=== PATIENT | female | born 2000 ===

== ENCOUNTER 2018-11-16 09:41 | Inpatient (IN) | payer MEDICAID ==
[2018-11-15 23:13] LABS: Hematocrit 42.3 % (30.3-42.9); Hemoglobin 13.8 gm/dl (10.1-14.3); Mean Corpuscular HGB Conc 33 % (30-34); Mean Corpuscular Volume 85 fl (79-97); Red Blood Count 4.98 M/mm3 (3.65-5.03); Red Cell Distribution Width 17.1 % (13.2-15.2)
[2018-11-15 23:19] LABS: Platelet Count 179 K/mm3 (140-440)
[2018-11-15] MEDS: LACTATED RINGERS 1,000 ML IV SCH (23:23)
[2018-11-16] MEDS: BUTORPHANOL 2 MG/1 ML INJ IV PRN ×3 (01:52→08:08)
[2018-11-16] MEDS: AMPICILLIN/NS 1 GM/50 ML 1 GM/50 ML BAG IV SCH ×2 (02:45→06:01)
[2018-11-16] MEDS: LACTATED RINGERS 1,000 ML IV SCH ×2 (08:09→16:15)
[~2018-11-16 09:41] MED LIST: AMPICILLIN/NS 2 GM/100 ML 2 GM/100 ML BAG IV ONE; LIDOCAINE (2%) 20 MG/1 ML VIAL 20 ML MDV INFILTRATI ONE; MINERAL OIL 30 ML ORAL LIQD PO PRN; ONDANSETRON 4 MG/2 ML INJ IV PRN; OXYTOCIN 20 UNIT/1000ML DRIP 20 UNITS/1,000 ML BAG IV SCH; OXYTOCIN DRIP 30 UNITS/500 ML BAG IV SCH; TERBUTALINE 1 MG/1 ML INJ IVP PRN; TERBUTALINE 1 MG/1 ML INJ SUB-Q PRN; ePHEDrine SULFATE 50 MG/1 ML INJ IV PRN
[2018-11-16] MEDS ORDERED: NALOXONE 2 MG/2 ML INJ IV PRN (10:21)
[2018-11-16] MEDS ORDERED: ePHEDrine SULFATE 50 MG/1 ML INJ IV PRN (10:21)
--- NOTE | 2018-11-16 10:22 | Anesthesia Consultation ---
Anesthesia Consult and Med Hx Date of service: 11/16/18 - Airway Anesthetic Teeth Evaluation: Good ROM Head & Neck: Adequate Mental/Hyoid Distance: Adequate Mallampati Class: Class II Intubation Access Assessment: Probably Good - Pulmonary Exam CTA: Yes - Cardiac Exam Cardiac Exam: RRR - Pre-Operative Health Status ASA Pre-Surgery Classification: ASA3 Proposed Anesthetic Plan: Epidural - Pulmonary Hx Asthma: No - Cardiovascular System Hx Hypertension: No - Central Nervous System Hx Seizures: No Hx Psychiatric Problems: No - Endocrine Hx Renal Disease: No Hx Hypothyroidism: No Hx Hyperthyroidism: No - Hematic Hx Anemia: No Hx Sickle Cell Disease: No - Other Systems Hx Alcohol Use: No Hx Obesity: Yes
[2018-11-16] MEDS ORDERED: fentaNYL-BUPIV 2 MCG/ML-0.125% 200 MCG/100 ML BAG EPIDURAL SCH (11:00)
[2018-11-16] MEDS ORDERED: WITCH HAZEL/ GLYCERIN PAD TP PRN (13:27)
[2018-11-16] MEDS ORDERED: LANOLIN/ZINC/DIMETHICONE (LANSINOH) 7 GM TP PRN (13:27)
[2018-11-16] MEDS ORDERED: MAGNESIUM HYDROXIDE (MOM) ORAL LIQD UDC PO PRN (13:27)
[2018-11-16] MEDS ORDERED: diphenhydrAMINE 25 MG CAP PO PRN (13:27)
[2018-11-16] MEDS ORDERED: HYDROcodone/ACETAMINOPHEN 5-325 MG TAB PO PRN (13:27)
[2018-11-16] MEDS ORDERED: ACETAMINOPHEN 325 MG TAB PO PRN (13:27)
[2018-11-16] MEDS ORDERED: ONDANSETRON 4 MG/2 ML INJ IV PRN (13:27)
[2018-11-16] MEDS ORDERED: PROMETHAZINE 25 MG TAB PO PRN (13:27)
--- NOTE | 2018-11-16 13:33 | Procedure Note ---
OB Delivery Note - Delivery Date of Delivery: 11/16/18 Surgeon: CHESTER JC (TERE) Estimated blood loss: 100cc - Vaginal Delivery presentation: vertex Delivery position: OA Intrapartum events: meconium (thick) Delivery induction: none Delivery monitor: external FHT, external uterine Route of delivery: (11:06) Delivery placenta: spontaneous (11:11) Delivery cord: 3 umbilical vessels Delivery laceration: 1st degree (small, left unrepaired) Anesthesia: epidural Delivery comments: viable female GAIL position at 11:06 with NICU and RT present for thick meconium stained fluid. Cord double clamped,cut, and infant placed in RW for assessment. Cord blood collected per hospital protocol. Spontaneous jarvis delivery of intact placenta, 3VC at 11:11. FF@U-2. small lochia. Small first degree perineal laceration left unrepaired. EBL 100cc. Infant and mother left in stable condition in L&D. - Infant A at 1 minute: 8 at 5 minutes: 9 Gender: Female (3094 grams, 6lbs 13oz, 19")
--- NOTE | 2018-11-16 13:40 | History and Physical Report ---
History of Present Illness Date of examination: 11/16/18 Date of admission: 11/16/18 11:23 Chief complaint: Intense labor pains History of present illness: 17yo , KOFFI 11/20/18 (LMP), 39 weeks 3 days presents in spontaneous labor. Pt initiated late care with [facility] at 16w1d gestation. Risk factors include morbid obesity and vitamin D deficiency. Past History Past Medical History: no pertinent history Past Surgical History: no surgical history [employer] V[employer]OR History: denies: abnormal PAP smear, chlamydia, gonorrhea, hepatitis B, hepatitis C, herpes, HIV, syphilis, trichomonas Family/Genetic History: hypertension Social history: no significant social history, single, lives with family, full code. denies: smoking, alcohol abuse, prescription drug abuse, IV drug use - Obstetrical History Expected Date of Delivery: 11/20/18 Actual Gestation: 39 Week(s) 3 Day(s) : 1 Para: 0 Hx # Term Pregnancies: 0 Number of Pregnancies: 0 Spontaneous Abortions: 0 Induced : 0 Number of Living Children: 0 Medications and Allergies Allergies Allergy/AdvReac Type Severity Reaction Status Date / Time No Known Allergies Allergy Unverified 11/15/18 21:41 Active Meds: Active Medications Acetaminophen (Tylenol) 650 mg PO Q4H PRN PRN Reason: Pain MILD(1-3)/Fever >100.5/PALOMARES Acetaminophen/Hydrocodone Bitart ([place] 5/325) 2 each PO Q6H PRN PRN Reason: Pain, Moderate (4-6) Bisacodyl (Dulcolax) 10 mg [place] BID PRN PRN Reason: Constipation Butorphanol Tartrate (Stadol) 2 mg IV Q2H PRN PRN Reason: Pain , Severe (7-10) Last Admin: 11/16/18 08:08 Dose: 2 mg Documented by: Diphenhydramine HCl (Benadryl) 25 mg PO Q6H PRN PRN Reason: Itching Ephedrine Sulfate (Ephedrine Sulfate) 10 mg IV Q2M PRN PRN Reason: Hypotension Oxytocin/Sodium Chloride (Pitocin/Ns 20 Unit/1000ml Drip) 20 units in 1,000 mls @ 125 mls/hr IV DIRECT LOLA Oxytocin/Sodium Chloride (Pitocin/Ns 30 Unit/500ml) 30 units in 500 mls @ 1 mls/hr IV TITR LOLA; Protocol Last Titration: 11/16/18 01:00 Dose: 4 milliunits/min, 4 mls/hr Documented by: Oxytocin/Sodium Chloride (Pitocin/Ns 30 Unit/500ml) 30 units in 500 mls @ 0 mls/hr IV DIRECT LOLA; Protocol Lactated Ringer's (Lactated Ringers) 1,000 mls @ 125 mls/hr IV DIRECT LOLA Last Admin: 11/16/18 08:09 Dose: 125 mls/hr Documented by: Ampicillin Sodium (Ampicillin/Ns 1 Gm/50 Ml) 1 gm in 50 mls @ 100 mls/hr IV Q4HR LOLA; Protocol Last Admin: 11/16/18 06:01 Dose: 100 mls/hr Documented by: Fentanyl/Bupivacaine/Sodium Chlor (Fentanyl-Bupiv 2 Mcg/Ml-0.125%) 200 mcg in 100 mls @ 12 mls/hr EPIDURAL TITR LOLA; Protocol Ibuprofen (Ibuprofen) 600 mg PO Q6H LOLA Magnesium Hydroxide (Milk Of Magnesia) 30 ml PO HS PRN PRN Reason: Constipation Mineral Oil (Mineral Oil) 30 ml PO QHS PRN PRN Reason: Constipation Multi-Ingredient Ointment (Lansinoh) 1 applic TP PRN PRN PRN Reason: Sore Nipples Naloxone HCl (Narcan 2 Mg/2 Ml) 0.2 mg IV Q5M PRN PRN Reason: Respiratory sedation Ondansetron HCl (Zofran) 4 mg IV Q8H PRN PRN Reason: Nausea And Vomiting Last Admin: 11/16/18 01:51 Dose: 4 mg Documented by: Ondansetron HCl (Zofran) 4 mg IV Q8H PRN PRN Reason: Nausea And Vomiting Promethazine HCl (Phenergan) 25 mg PO Q6H PRN PRN Reason: Nausea And Vomiting Sodium Chloride (Sodium Chloride Flush Syringe 10 Ml) 10 ml IV PRN NR Terbutaline Sulfate (Brethine) 0.25 mg SUB-Q ONCE PRN PRN Reason: Hyperstimulation/Hypertonicity Terbutaline Sulfate (Brethine) 0.25 mg IVP ONCE PRN PRN Reason: Hyperstimulation/Hypertonicity Witch [place]/Glycerin (Tucks Pad) 1 each TP PRN PRN PRN Reason: Hemorrhoid/cleansing/soothing Review of Systems Eyes: normal appearance Cardiovascular: no chest pain, no shortness of breath Respiratory: no shortness of breath Breasts: normal Gastrointestinal: abdominal pain, no nausea, no vomiting, no diarrhea, no constipation Genitourinary: normal appearance, contractions, no vaginal bleeding, no vaginal discharge, no leakage of fluid, no genital sores Integumentary: no rash, no sores, no lesions - Vital Signs Vital signs: Vital Signs Pulse BP 73 132/80 11/15/18 20:51 11/15/18 20:51 Temp Pulse Resp BP Pulse Ox 97.9 F 66 19 124/59 96 11/16/18 13:18 11/16/18 13:18 11/16/18 13:18 11/16/18 13:18 11/16/18 13:18 - Physical Exam Breasts: Positive: normal Cardiovascular: Regular rate, Normal S1, Normal S2, No murmurs Lungs: Positive: Clear to auscultation, Normal air movement Abdomen: Positive: normal appearance, soft, normal bowel sounds. Negative: distention Genitourinary (Female): Positive: normal external genitalia, normal perenium Vulva: both: normal Vagina: Positive: normal moisture Uterus: Positive: enlarged Adnexa: both: normal Anus/Rectum: Positive: normal perianal skin Extremities: Positive: normal Deep Tendon Reflex Grade: Normal +2 - Obstetrical FHR: category 1 Uterine Contraction Monitor Mode: External Cervical Dilatation: 5 (on admission per RN) Uterine Contraction Pattern: Regular Uterine Tone Measurement Phase: Resting Uterine Contraction Intensity: Strong/Firm Results Result Diagrams: 11/15/18 22:30 Abnormal lab results 11/15/18 Range/Units 22:30 RDW 17.1 H (13.2-15.2) % All other labs normal. Assessment and Plan A: Term IUP 39w3d Category 1 tracing Active labor GBS positive P: Admit to L&D, Routine labor orders May have IV pain med or epidural PRN Anticipate
[2018-11-16] MEDS: IBUPROFEN 600 MG TAB PO SCH ×2 (16:30→23:32)
[2018-11-17 02:03] LABS: Hematocrit 34.6 % (30.3-42.9); Hemoglobin 11.4 gm/dl (10.1-14.3)
[2018-11-17] MEDS: IBUPROFEN 600 MG TAB PO SCH ×4 (05:29→22:10)
--- NOTE | 2018-11-17 09:46 | Progress Note ---
Assessment and Plan - Patient Problems (1) Status post normal vaginal delivery Current Visit: Yes Status: Acute Plan to address problem: PPD 1 - stable Continue routine orders Discharge to home on 11/18/18 Follow up at [facility] as needed or in 6 weeks for exam Subjective - Subjective Date of service: 11/17/18 Principal diagnosis: PPD #1; s/p Interval history: see H&P and OB Delivery Procedure Note Patient reports: appetite normal, voiding normally, pain well controlled, ambulating normally : doing well, nursing well, bottle feeding Objective - Vital Signs Latest vital signs: Vital Signs Temp Pulse Resp BP BP Pulse Ox 11/17/18 07:58 98.1 F 67 18 112/69 97 11/17/18 05:29 20 11/17/18 01:50 98.1 F 75 18 113/52 97 11/16/18 23:32 18 11/16/18 21:45 97.6 F 78 20 116/50 97 11/16/18 17:05 99.4 F 67 18 111/63 96 11/16/18 13:18 97.9 F 66 19 124/59 96 11/16/18 12:03 97.9 F 11/16/18 11:50 65 100/59 11/16/18 11:48 64 111/62 11/16/18 11:46 93 H 109/67 11/16/18 11:44 71 104/58 11/16/18 11:39 209/142 11/16/18 11:34 147/62 11/16/18 11:33 210 H 153/70 11/16/18 11:22 200 H 134/61 11/16/18 11:20 210 H 157/66 11/16/18 11:19 89 156/59 11/16/18 11:16 82 110/55 11/16/18 11:14 96 H 110/59 11/16/18 11:12 69 113/57 11/16/18 11:10 70 120/66 11/16/18 11:09 68 116/56 11/16/18 11:06 121 H 144/75 11/16/18 11:03 45 L 133/70 95 11/16/18 11:02 91 11/16/18 10:58 94 H 97 11/16/18 10:57 80 94 11/16/18 10:55 74 148/63 11/16/18 10:53 73 99 11/16/18 10:52 65 132/72 11/16/18 10:50 78 134/75 11/16/18 10:48 73 138/82 97 11/16/18 10:46 59 L 136/75 94 11/16/18 10:45 65 139/92 11/16/18 10:43 80 98 11/16/18 10:42 56 L 136/62 11/16/18 10:40 54 L 139/65 94 11/16/18 10:38 56 L 142/63 98 11/16/18 10:36 60 141/66 11/16/18 10:35 54 L 94 11/16/18 10:34 60 143/67 11/16/18 10:33 59 L 96 11/16/18 10:32 60 140/61 11/16/18 10:30 76 146/68 11/16/18 10:28 61 147/67 96 11/16/18 10:26 93 H 149/62 11/16/18 10:24 68 145/69 94 11/16/18 10:23 63 96 11/16/18 10:22 63 144/68 11/16/18 10:20 77 151/71 11/16/18 10:18 79 150/70 93 11/16/18 10:16 89 145/90 94 11/16/18 10:14 81 137/79 11/16/18 10:13 71 95 11/16/18 10:12 67 125/80 11/16/18 10:10 88 134/85 92 11/16/18 10:08 72 131/79 96 Intake and Output 11/16/18 11/17/18 11/17/18 23:59 07:59 15:59 Intake Total 120 120 Output Total 700 400 Balance -580 -280 Intake: Oral 120 120 Output: Urine 700 400 Void 700 400 Other: Total, Intake Amount 120 120 Total, Output Amount 300 400 # Voids Void 1 1 - Exam Cardiovascular: Present: Regular rate Lungs: Present: Clear to auscultation Abdomen: Present: normal appearance, soft Vulva: both: laceration/episiotomy Uterus: Present: normal, firm, fundal height at umbilicus Extremities: Present: normal Comments: scant lochia
--- NOTE | 2018-11-17 09:48 | Discharge Summary ---
Providers - Providers Date of Admission: 11/16/18 11:23 Date of discharge: 11/18/18 Attending physician: ROBERT PORRAS MD Primary care physician: ROBERT PORRAS MD Hospitalization Reason for admission: active labor, IUP at term Delivery: Episiotomy: none Laceration: 1st degree Other procedures: none complications: none Discharge diagnosis: IUP at term delivered [place] baby: female Hospital course: Uncomplicated Condition at discharge: Stable Disposition: [place]-01 TO HOME OR SELFCARE - Discharge Diagnoses (1) Status post normal vaginal delivery Status: Acute Plan - Provider Discharge Summary Activity: routine, no sex for 6 weeks, no heavy lifting 4 weeks, no strenuous exercise Diet: routine Instructions: routine Additional instructions: [] Smoking cessation referral if applicable(refer to patient education folder for contact #) [] Refer to [facility] Booklet Call your doctor immediately for: * Fever > 100.5 * Heavy vaginal bleeding ( >1 pad per hour) * Severe persistent headache * Shortness of breath * Reddened, hot, painful area to leg or breast * Drainage or odor from incision. * Keep incision clean and dry at all times and follow doctor's instructions regarding bathing/showering - Follow up plan Follow up: ROBERT PORRAS MD [Primary Care Provider] - 6 Weeks (Follow up at [facility] as needed or in 6 weeks for exam)
[2018-11-18] MEDS: IBUPROFEN 600 MG TAB PO SCH (05:45)
--- NOTE | 2018-11-18 12:47 | Progress Note ---
Assessment and Plan S/P continue current management Shahid QUINN Subjective - Subjective Date of service: 11/18/18 Principal diagnosis: PPD #1; s/p Interval history: Patient doing well no complaints baby and support person in room with patient Objective - Vital Signs Vital Signs: Vital Signs - 12hr 11/18/18 11/18/18 05:45 08:15 Temperature 98.1 F Pulse Rate 77 Respiratory 18 20 Rate Blood Pressure 120/76 [Left] - Exam Breasts: deferred Cardiovascular: Regular rate Lungs: Clear to auscultation Abdomen: Present: normal appearance, soft Uterus: Present: firm, fundal height below umbilicus Deep Tendon Reflex Grade: Normal +2 - Labs Labs: Abnormal Labs 11/15/18 22:30 RDW 17.1 H
[2018-11-18 13:44] VITALS: BP 140/79
== END 2018-11-18 12:10 | disposition home or self-care (01) | DRG 775 ==
LOC: LD 09:41 → TRG 09:41 → LD 11:23 → OB 13:07
PROVIDERS: ADMIT Obstetrics & Gynecology; ATTEND Obstetrics & Gynecology
PROC: 10E0XZZ Delivery of Products of Conception, External Approach (ICD-10-PCS; principal; 2018-11-16)
PROC: 3E0R3BZ Introduction of Anesthetic Agent into Spinal Canal, Percutaneous Approach (ICD-10-PCS; 2018-11-16)
PROC: 00HU33Z Insertion of Infusion Device into Spinal Canal, Percutaneous Approach (ICD-10-PCS; 2018-11-16)
DX: O99.824 Streptococcus B carrier state complicating childbirth (principal); O99.214 Obesity complicating childbirth; E66.01 Morbid (severe) obesity due to excess calories; O77.0 Labor and delivery complicated by meconium in amniotic fluid; O70.0 First degree perineal laceration during delivery; Z3A.39 39 weeks gestation of pregnancy; Z37.0 Single live birth; Z82.49 Family history of ischemic heart disease and other diseases of the circulatory system
CPT/HCPCS: 36415; 85014; 85018; 85027; 86592; 86850; 86900; 86901; G0378; J0290; J0595; J2405; J2590; J7120